=== PATIENT | female | born 1955 | race Caucasian/White ===

== ENCOUNTER → 2020-09-18 | Outpatient (CLI) | payer OTHER | END | disposition home or self-care (01) | LOC: COVID19 12:52 | PROVIDERS: ATTEND Physician Assistant Medical | DX: Z20.828 Contact with and (suspected) exposure to other viral communicable diseases (principal) ==

== ENCOUNTER → 2024-01-07 | Outpatient (CLI) | payer MEDICARE ==
[~2024-01-07] MED LIST: COREG6.25 MG PO; DIOVAN320 MG PO; HYDR25T PO; NORVASC5 MG PO; POTASSIUM CHLO10 MEQ PO; Regadenoson 0.4 MG/5 ML SYR IV ONE; Technetium Tc 99M Tetrofosmi 0.23 MG KIT IJ SCH
== END | disposition home or self-care (01) ==
LOC: CARD 01:24
PROVIDERS: ATTEND Student in an Organized Health Care Education/Training Program
DX: Z01.818 Encounter for other preprocedural examination (principal); R07.9 Chest pain, unspecified; R06.02 Shortness of breath